=== PATIENT | female | born 1970 | race Caucasian/White ===

== ENCOUNTER 2016-11-06 11:52 | Outpatient (CLI) | payer OTHER, BC ==
--- NOTE | 2016-11-06 18:14 | XRAY Report ---
EXAM: RIGHT FOOT RADIOGRAPHY EXAM DATE: 11/06/2016 12:20 PM. CLINICAL HISTORY: HEAL SPUR. COMPARISON: 06/30/2013. TECHNIQUE: 3 views. FINDINGS: Bones: There is no evidence of acute fracture. A small plantar calcaneal spur is again seen. Joints: Normal. No subluxations. Soft Tissues: Normal. No soft tissue swelling. IMPRESSION: Small plantar calcaneal spur. [facility] Referring Provider Line: [phone] SITE ID: [id number]
== END 2016-11-06 11:53 | disposition home or self-care (01) ==
LOC: DI 11:52
PROVIDERS: ATTEND Specialist
DX: M77.31 Calcaneal spur, right foot (principal)

== ENCOUNTER 2016-11-23 15:39 | Outpatient (CLI) | payer OTHER, BC | END 2016-11-23 15:40 | disposition home or self-care (01) | LOC: SC 15:39 | PROVIDERS: ATTEND Internal Medicine Pulmonary Disease | DX: G47.10 Hypersomnia, unspecified (principal); R06.83 Snoring; G47.8 Other sleep disorders | CPT/HCPCS: 99203; 99212 ==

== ENCOUNTER 2017-01-23 19:25 | Outpatient (CLI) | payer OTHER, BC | END 2017-01-23 19:26 | disposition home or self-care (01) | LOC: SC 19:25 | PROVIDERS: ATTEND Internal Medicine Pulmonary Disease | DX: G47.33 Obstructive sleep apnea (adult) (pediatric) (principal) | CPT/HCPCS: 95810 ==

== ENCOUNTER 2017-03-24 09:20 | Outpatient (CLI) | payer OTHER, BC | END 2017-03-24 09:21 | disposition home or self-care (01) | LOC: SC 09:20 | PROVIDERS: ATTEND Nurse Practitioner Family | DX: G47.33 Obstructive sleep apnea (adult) (pediatric) (principal) | CPT/HCPCS: 99212; 99214 ==

== ENCOUNTER 2017-06-16 09:41 | Outpatient (CLI) | payer OTHER, BC | END 2017-06-16 09:42 | disposition home or self-care (01) | LOC: SC 09:41 | PROVIDERS: ATTEND Nurse Practitioner Family | DX: G47.33 Obstructive sleep apnea (adult) (pediatric) (principal); F41.9 Anxiety disorder, unspecified; F32.9 Major depressive disorder, single episode, unspecified; I47.1 Supraventricular tachycardia | CPT/HCPCS: 99212; 99214 ==

== ENCOUNTER 2017-06-27 08:24 | Outpatient (CLI) | payer OTHER, BC | END 2017-06-27 08:25 | disposition home or self-care (01) | LOC: SC 08:24 | PROVIDERS: ATTEND Nurse Practitioner Family | DX: G47.33 Obstructive sleep apnea (adult) (pediatric) (principal); F41.9 Anxiety disorder, unspecified; F32.9 Major depressive disorder, single episode, unspecified; I47.1 Supraventricular tachycardia | CPT/HCPCS: 99212; 99214 ==

== ENCOUNTER 2017-08-02 08:50 | Outpatient (CLI) | payer OTHER, BC | END 2017-08-02 08:51 | disposition home or self-care (01) | LOC: SC 08:50 | PROVIDERS: ATTEND Nurse Practitioner Family | DX: G47.33 Obstructive sleep apnea (adult) (pediatric) (principal) | CPT/HCPCS: 99212; 99214 ==

== ENCOUNTER 2017-09-05 14:49 | Outpatient (CLI) | payer OTHER, BC | END 2017-09-05 14:50 | disposition home or self-care (01) | LOC: SC 14:49 | PROVIDERS: ATTEND Nurse Practitioner Family | DX: G47.33 Obstructive sleep apnea (adult) (pediatric) (principal) | CPT/HCPCS: 99212; 99214 ==

== ENCOUNTER 2017-10-26 02:16 | Emergency (ER) | payer OTHER, BC ==
--- NOTE | 2017-10-26 02:42 | ED Physician Documentation ---
PD HPI ABD PAIN - Stated complaint Stated Complaint: RUQ PAIN - Chief complaint Chief Complaint: Abd Pain - History obtained from History obtained from: Patient - History of Present Illness Timing - onset: How many weeks ago (1.5) Timing - details: Gradual onset, Waxing and waning Pain level now: 8 Quality: Pain Location: RUQ Radiation: Right flank Improved by: Other (no ameliorating factors) Worsened by: Other (no exacerbating factors) Associated symptoms: Nausea, Vomiting, Diarrhea. 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 - Present Medications Home Medications: Ambulatory Orders Medication Instructions Recorded Confirmed Albuterol [Ventolin Hfa] 2 puffs INH PRN PRN 06/30/13 06/30/13 Lamotrigine 400 mg PO DAILY 06/30/13 06/30/13 Acyclovir 400 mg PO BID 10/26/17 Fluticasone Propionate [Flovent 100 mcg IH BID 10/26/17 Diskus] Montelukast [Singulair] 10 mg PO QPM 10/26/17 Ondansetron Odt [Zofran] 4 mg TL Q6H PRN #10 tablet 10/26/17 oxyCODONE [Roxicodone] 5 - 10 mg PO Q6H PRN #20 tablet 10/26/17 raNITIdine [Zantac] 150 mg PO BID 10/26/17 - Allergies Allergies/Adverse Reactions: Allergies Allergy/AdvReac Type Severity Reaction Status Date / Time morphine Allergy Itching Verified 10/26/17 02:27 tramadol Allergy chest pain Verified 10/26/17 02:27 - Social History Does the pt smoke?: No Smoking Status: Never smoker Does the pt drink ETOH?: Yes Does the pt have substance abuse?: No - Immunizations Immunizations are current?: Yes - POLST Patient has POLST: No PD ED PE NORMAL - Vitals Vital signs reviewed: Yes - General General: Alert and oriented X 3, Well developed/nourished, Other (appears to be uncomfortable due to pain) - HEENT HEENT: Moist mucous membranes - Cardiac Cardiac: RRR, No murmur - Respiratory Respiratory: No respiratory distress, Clear bilaterally - Abdomen Abdomen: Soft, Non distended, Other (mild epigastric tenderness without rebound or guardng) - Back Back: No CVA TTP - Derm Derm: Normal color, Warm and dry, No rash - Extremities Extremities: No edema Results - Vitals Vitals: Vital Signs - 24 hr 10/26/17 10/26/17 10/26/17 02:18 03:22 04:15 Temperature 36.3 C L Heart Rate 127 H 89 77 Respiratory 20 17 16 Rate Blood Pressure 138/78 H 108/68 114/66 O2 Saturation 100 94 93 10/26/17 05:33 Temperature Heart Rate 79 Respiratory 16 Rate Blood Pressure 124/72 O2 Saturation 94 Oxygen O2 Source Room air - Labs Labs: Laboratory Tests 10/26/17 10/26/17 10/26/17 03:00 03:08 03:08 WBC 10.8 RBC 4.38 Hgb 13.0 Hct 38.3 MCV 87.4 MCH 29.6 MCHC 33.9 RDW 12.5 Plt Count 343 MPV 7.3 L Neut # (Auto) 8.8 H Lymph # (Auto) 1.1 L [place] # (Auto) 0.8 Eos # (Auto) 0.1 Baso # (Auto) 0.0 Absolute Nucleated RBC 0.01 Nucleated RBC % 0.0 Sodium 136 Potassium 3.8 Chloride 102 Carbon Dioxide 24 Anion Gap 10.0 BUN 15 Creatinine 0.7 Estimated GFR (MDRD) 89 Glucose 129 H Calcium 9.3 Total Bilirubin < 0.2 L AST 18 ALT 14 Alkaline Phosphatase 74 Total Protein 7.6 Albumin 4.0 Globulin 3.6 Albumin/Globulin Ratio 1.1 Lipase 22 Urine Color YELLOW Urine Clarity CLEAR Urine pH 6.0 Ur Specific [place] 1.015 Urine Protein NEGATIVE Urine Glucose (UA) NEGATIVE Urine Ketones NEGATIVE Urine Occult Blood TRACE-INTA Urine Nitrite NEGATIVE Urine Bilirubin NEGATIVE Urine Urobilinogen 0.2 (NORMAL) Ur Leukocyte Esterase NEGATIVE Ur Microscopic Review NOT INDICATED Urine Culture Comments NOT INDICATED Urine HCG, Qual NEGATIVE - Rads (name of study) CT A/P Radiology: Prelim report reviewed, See rad report PD MEDICAL DECISION MAKING - ED course Complexity details: reviewed results, re-evaluated patient (patient reported significant relief with iv dilaudid and zofran. unremarkable test results, will discharge with undifferentiated abdominal pain instructions. f/u with PMD, return to ED if worse), considered differential, d/w patient - Sepsis Event Vital Signs: Vital Signs - 24 hr 10/26/17 10/26/17 10/26/17 02:18 03:22 04:15 Temperature 36.3 C L Heart Rate 127 H 89 77 Respiratory 20 17 16 Rate Blood Pressure 138/78 H 108/68 114/66 O2 Saturation 100 94 93 10/26/17 05:33 Temperature Heart Rate 79 Respiratory 16 Rate Blood Pressure 124/72 O2 Saturation 94 Oxygen O2 Source Room air Departure - Departure Disposition: 01 Home, Self Care Clinical Impression: Flank pain Condition: Good Instructions: ED Flank Pain Uncertain Cause Follow-Up: Kanika Roberts PA-C [Primary Care Provider] - Within 3 Days Prescriptions: Ondansetron Odt [Zofran] 4 mg TL Q6H PRN #10 tablet PRN Reason: Nausea / Vomiting oxyCODONE [Roxicodone] 5 - 10 mg PO Q6H PRN #20 tablet PRN Reason: Pain Discharge Date/Time: 10/26/17 05:52
[2017-10-26] MEDS ORDERED: SODIUM CHLORIDE 0.9% 1,000 ML IV STA (02:58)
[2017-10-26] MEDS ORDERED: ONDANSETRON 4 MG/2 ML VIAL IVP STA (02:58)
[2017-10-26] MEDS ORDERED: HYDROmorphone 1 MG/ML CARPUJECT IVP STA (02:58)
[2017-10-26 03:17] LABS: BILIRUBIN,URINE NEGATIVE (NEGATIVE); GLUCOSE, URINE (UA) NEGATIVE (NEGATIVE); KETONES,URINE (UA) NEGATIVE (NEGATIVE); LEUKOCYTE ESTERASE, URINE NEGATIVE (NEGATIVE); NITRITE,URINE NEGATIVE (NEGATIVE); OCCULT BLOOD,URINE TRACE-INTA (NEGATIVE); PROTEIN,URINE NEGATIVE (NEGATIVE); UROBILINOGEN,URINE 0.2 (NORMAL) E.U./dL (NORMAL)
[2017-10-26 03:18] LABS: BASOPHILS % (AUTO) 0.4 %; EOSINOPHILS # (AUTO) 0.1 10^3/uL (0.0-0.7); EOSINOPHILS % (AUTO) 0.5 %; LYMPHOCYTES # (AUTO) 1.1 10^3/uL (1.5-3.5); MEAN CORPUSCULAR HEMOGLOBIN 29.6 pg (27.0-31.0); MEAN CORPUSCULAR HGB CONC 33.9 g/dL (32.0-36.0); MEAN CORPUSCULAR VOLUME 87.4 fL (81.0-99.0); MEAN PLATELET VOLUME 7.3 fL (7.9-10.8); MONOCYTES # (AUTO) 0.8 10^3/uL (0.0-1.0); MONOCYTES % (AUTO) 7.3 %; NEUTROPHILS # (AUTO) 8.8 10^3/uL (1.5-6.6); NEUTROPHILS % (AUTO) 81.8 %; PLT - PLATELET COUNT 343 10^3/uL (130-450); RED BLOOD COUNT 4.38 10^6/uL (4.20-5.40); RED CELL DISTRIBUTION WIDTH 12.5 % (12.0-15.0); WHITE BLOOD COUNT 10.8 x10^3/uL (4.8-10.8)
[2017-10-26 03:19] LABS: CLARITY,URINE CLEAR (CLEAR)
[2017-10-26 03:20] LABS: HCG UR QUAL NEGATIVE
[2017-10-26 03:29] LABS: ALBUMIN/GLOBULIN RATIO 1.1 (1.0-2.2); ALKALINE PHOSPHATASE 74 IU/L (42-121); ALT ALANINE AMINOTRANSFERASE 14 IU/L (10-60); AST ASPARTATE AMINOTRANSFERASE 18 IU/L (10-42); BILIRUBIN,TOTAL < 0.2 mg/dL (0.2-1.0); BUN - BLOOD UREA NITROGEN 15 mg/dL (6-20); CALCIUM 9.3 mg/dL (8.5-10.3); CARBON DIOXIDE - CO2 24 mmol/L (21-32); CHLORIDE 102 mmol/L (101-111); CREATININE 0.7 mg/dL (0.4-1.0); GFR - MDRD 89 (>89); GLUCOSE 129 mg/dL (70-100); LIPASE 22 U/L (22-51); SODIUM 136 mmol/L (135-145); TOTAL PROTEIN 7.6 g/dL (6.7-8.2)
--- NOTE | 2017-10-26 04:45 | CT Report ---
Reason: right flank pain Procedure Date: 10/26/2017 Accession Number: [id number] / [id number] Procedure: CT - Abdomen/Pelvis W/O CPT Code: FULL RESULT: EXAM: CT ABDOMEN AND PELVIS (CT KUB) EXAM DATE: 10/26/2017 04:28 AM. CLINICAL HISTORY: Right flank pain. COMPARISONS: ABDOMEN LMTD 02/22/2007 7:10 PM. TECHNIQUE: Routine axial helical CT imaging was performed through the abdomen and pelvis without IV contrast. Reconstructions: Coronal and sagittal. In accordance with CT protocol optimization, one or more of the following dose reduction techniques were utilized for this exam: automated exposure control, adjustment of mA and/or KV based on patient size, or use of iterative reconstructive technique. FINDINGS: Lung Bases: Unremarkable. Right Kidney/Ureter: No stones, hydronephrosis, or hydroureter. No perinephric fat stranding. Left Kidney/Ureter: No stones, hydronephrosis, or hydroureter. No perinephric fat stranding. Other Solid Organs: Noncontrast images of the solid organs are grossly unremarkable. Gallbladder/Bile Ducts: Unremarkable. Peritoneal Cavity: No free fluid, free air or juliet adenopathy. Bowel is grossly unremarkable with note of a normal appendix. Pelvic Organs: No bladder stones or wall thickening. Noncontrast images of the visualized pelvic organs are unremarkable with note of an IUD. Vasculature: Unremarkable. Other: None. IMPRESSION: No urinary tract stones or obstruction. [facility]
[2017-10-26] MEDS ORDERED: oxyCODONE/ACET 5/325 Prepack 4 PO STA (05:16)
[2017-10-26] MEDS ORDERED: ONDANSETRON ODT 4 MG Prepack 2 TL STA (05:16)
[2017-10-26 05:34] VITALS: BP 124/72
== END 2017-10-26 05:52 | disposition home or self-care (01) ==
LOC: ED 02:16
DX: R10.31 Right lower quadrant pain (principal)
CPT/HCPCS: 36415; 74176; 80053; 81003; 81025; 83690; 85025; 96361; 96374; 96375; 99283; 99284; J1170; 81001; 87086

== ENCOUNTER 2017-10-28 06:39 | Emergency (ER) | payer OTHER, BC ==
[2017-10-28 07:27] LABS: BASOPHILS # (AUTO) 0.1 10^3/uL (0.0-0.1); BASOPHILS % (AUTO) 0.6 %; EOSINOPHILS % (AUTO) 0.5 %; HGB - HEMOGLOBIN 12.6 g/dL (12.0-16.0); LYMPHOCYTES # (AUTO) 1.1 10^3/uL (1.5-3.5); LYMPHOCYTES % (AUTO) 10.9 %; MEAN CORPUSCULAR HEMOGLOBIN 29.8 pg (27.0-31.0); MEAN CORPUSCULAR HGB CONC 34.2 g/dL (32.0-36.0); MONOCYTES # (AUTO) 0.6 10^3/uL (0.0-1.0); MONOCYTES % (AUTO) 6.3 %; NEUTROPHILS # (AUTO) 8.2 10^3/uL (1.5-6.6); NEUTROPHILS % (AUTO) 81.7 %; PLT - PLATELET COUNT 308 10^3/uL (130-450); RED BLOOD COUNT 4.22 10^6/uL (4.20-5.40); RED CELL DISTRIBUTION WIDTH 12.4 % (12.0-15.0)
[2017-10-28] MEDS ORDERED: ONDANSETRON 4 MG/2 ML VIAL IVP STA (07:36)
[2017-10-28] MEDS ORDERED: ACETAMINOPHEN 1,000 MG/100 ML 100 ML IV STA (07:36)
[2017-10-28] MEDS ORDERED: KETOROLAC 60 MG/2 ML VIAL IVP STA (07:36)
[2017-10-28] MEDS ORDERED: SODIUM CHLORIDE 0.9% 1,000 ML IV ONE (07:36)
[2017-10-28 07:40] LABS: ALBUMIN/GLOBULIN RATIO 1.1 (1.0-2.2); BILIRUBIN,TOTAL 0.5 mg/dL (0.2-1.0); CALCIUM 8.9 mg/dL (8.5-10.3); CREATININE 0.8 mg/dL (0.4-1.0); TOTAL PROTEIN 7.6 g/dL (6.7-8.2)
--- NOTE | 2017-10-28 07:48 | ED Physician Documentation ---
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 - Present Medications Home Medications: Ambulatory Orders Medication Instructions Recorded Confirmed Albuterol [Ventolin Hfa] 2 puffs INH PRN PRN 06/30/13 06/30/13 Lamotrigine 400 mg PO DAILY 06/30/13 06/30/13 Acyclovir 400 mg PO BID 10/26/17 Fluticasone Propionate [Flovent 100 mcg IH BID 10/26/17 Diskus] Montelukast [Singulair] 10 mg PO QPM 10/26/17 Ondansetron Odt [Zofran] 4 mg TL Q6H PRN #10 tablet 10/26/17 oxyCODONE [Roxicodone] 5 - 10 mg PO Q6H PRN #20 tablet 10/26/17 raNITIdine [Zantac] 150 mg PO BID 10/26/17 Dicyclomine [Bentyl] 10 mg PO Q8H PRN #20 capsule 10/28/17 Sucralfate 1 gm PO ACHS #120 tablet 10/28/17 - Allergies Allergies/Adverse Reactions: Allergies Allergy/AdvReac Type Severity Reaction Status Date / Time morphine Allergy Itching Verified 10/26/17 02:27 tramadol Allergy chest pain Verified 10/26/17 02:27 - Social History Does the pt smoke?: No Smoking Status: Never smoker Does the pt drink ETOH?: Yes Does the pt have substance abuse?: No - Immunizations Immunizations are current?: Yes - POLST Patient has POLST: No PD ED PE NORMAL - Vitals Vital signs reviewed: Yes - General General: Other (restless almost writihing) - Neck Neck: Supple, no meningeal sign - Cardiac Cardiac: RRR - Respiratory Respiratory: No respiratory distress, Clear bilaterally - Abdomen Abdomen: Other (+ BS soft, palpation does not alter the pain no pulsatile mass neg murphys) - Back Back: No CVA TTP - Derm Derm: Normal color - Neuro Neuro: Alert and oriented X 3 Results - Vitals Vitals: Vital Signs - 24 hr 10/28/17 10/28/17 10/28/17 06:48 10:22 13:14 Temperature 36.1 C L 37.1 C 98.3 C H Heart Rate 81 64 65 Respiratory 20 18 16 Rate Blood Pressure 116/71 110/69 117/74 O2 Saturation 100 98 100 Oxygen O2 Source Room air - Labs Labs: Laboratory Tests 10/28/17 10/28/17 10/28/17 07:19 07:19 08:52 WBC 10.0 RBC 4.22 Hgb 12.6 Hct 36.7 L MCV 87.0 MCH 29.8 MCHC 34.2 RDW 12.4 Plt Count 308 MPV 7.0 L Neut # (Auto) 8.2 H Lymph # (Auto) 1.1 L [place] # (Auto) 0.6 Eos # (Auto) 0.0 Baso # (Auto) 0.1 Absolute Nucleated RBC 0.01 Nucleated RBC % 0.1 Sodium 137 Potassium 3.7 Chloride 100 L Carbon Dioxide 25 Anion Gap 12.0 BUN 9 Creatinine 0.8 Estimated GFR (MDRD) 77 L Glucose 111 H Calcium 8.9 Total Bilirubin 0.5 AST 19 ALT 14 Alkaline Phosphatase 81 Total Protein 7.6 Albumin 4.0 Globulin 3.6 Albumin/Globulin Ratio 1.1 Lipase 25 Urine Color YELLOW Urine Clarity CLEAR Urine pH 8.5 H Ur Specific [place] 1.010 Urine Protein NEGATIVE Urine Glucose (UA) NEGATIVE Urine Ketones NEGATIVE Urine Occult Blood NEGATIVE Urine Nitrite NEGATIVE Urine Bilirubin NEGATIVE Urine Urobilinogen 0.2 (NORMAL) Ur Leukocyte Esterase NEGATIVE Ur Microscopic Review NOT INDICATED Urine Culture Comments NOT INDICATED Urine HCG, Qual 10/28/17 08:52 WBC RBC Hgb Hct MCV MCH MCHC RDW Plt Count MPV Neut # (Auto) Lymph # (Auto) [place] # (Auto) Eos # (Auto) Baso # (Auto) Absolute Nucleated RBC Nucleated RBC % Sodium Potassium Chloride Carbon Dioxide Anion Gap BUN Creatinine Estimated GFR (MDRD) Glucose Calcium Total Bilirubin AST ALT Alkaline Phosphatase Total Protein Albumin Globulin Albumin/Globulin Ratio Lipase Urine Color Urine Clarity Urine pH Ur Specific [place] 1.010 Urine Protein Urine Glucose (UA) Urine Ketones Urine Occult Blood Urine Nitrite Urine Bilirubin Urine Urobilinogen Ur Leukocyte Esterase Ur Microscopic Review Urine Culture Comments Urine HCG, Qual NEGATIVE - Rads (name of study) ruq sono Radiology: See rad report (no gallstones, no acute key, no hydro) CTA abd pelvis Radiology: See rad report (rlq adenopathy, no other acuet process) PD MEDICAL DECISION MAKING - ED course ED course: sono neg CTA shows mesenteric adenitis by pt hx food poisoning such as salmonella unliekly she has recently cared for rotavirus pt so likely viral will dc she also suffers frogastritis, will add carafate and refer to surg for EGD - Sepsis Event Vital Signs: Vital Signs - 24 hr 10/28/17 10/28/17 10/28/17 06:48 10:22 13:14 Temperature 36.1 C L 37.1 C 98.3 C H Heart Rate 81 64 65 Respiratory 20 18 16 Rate Blood Pressure 116/71 110/69 117/74 O2 Saturation 100 98 100 Oxygen O2 Source Room air Departure - Departure Disposition: 01 Home, Self Care Clinical Impression: Mesenteric adenitis Gastritis Qualifiers: Gastritis type: unspecified gastritis Chronicity: acute Gastritis bleeding: without bleeding Qualified Code(s): K29.00 - Acute gastritis without bleeding Condition: Good Instructions: ED Gastritis, ED Adenitis Mesenteric Follow-Up: Wesly Garibay MD [Provider Admit Priv/Credential] - (call to schedule an appointment to discuss endoscopy) Prescriptions: Dicyclomine [Bentyl] 10 mg PO Q8H PRN #20 capsule PRN Reason: stomach cramps Sucralfate 1 gm PO ACHS #120 tablet Comments: Continue your zantac. Try to cut down on your NSAID use. The inflamed lymph nodes will resolve on their own Follow up with the surgical clinic to discuss endoscopy
[2017-10-28 09:12] LABS: BILIRUBIN,URINE NEGATIVE (NEGATIVE); CLARITY,URINE CLEAR (CLEAR); GLUCOSE, URINE (UA) NEGATIVE (NEGATIVE); KETONES,URINE (UA) NEGATIVE (NEGATIVE); LEUKOCYTE ESTERASE, URINE NEGATIVE (NEGATIVE); NITRITE,URINE NEGATIVE (NEGATIVE); OCCULT BLOOD,URINE NEGATIVE (NEGATIVE); PH,URINE 8.5 PH (5.0-7.5); PROTEIN,URINE NEGATIVE (NEGATIVE); UROBILINOGEN,URINE 0.2 (NORMAL) E.U./dL (NORMAL)
[2017-10-28 09:13] LABS: HCG UR QUAL NEGATIVE
--- NOTE | 2017-10-28 09:27 | Ultrasound Report ---
Reason: ruq r flank pain Procedure Date: 10/28/2017 Accession Number: [id number] / [id number] Procedure: US - Abdomen Limited CPT Code: FULL RESULT: EXAM: ABDOMEN ULTRASOUND LIMITED, RUQ EXAM DATE: 10/28/2017 08:45 AM. CLINICAL HISTORY: Ruq r flank pain. COMPARISON: ABDOMEN/PELVIS W/O 10/26/2017 4:15 AM. TECHNIQUE: Real-time scanning was performed with static images obtained. FINDINGS: Liver: The parenchyma is mildly heterogeneous diffusely. No definite focal masses are identified, but evaluation is limited secondary to the echotexture. 15.4 cm. Main portal vein flow: Hepatopetal. Gallbladder: Normal. No stones, wall thickening, or sonographic Briscoe's sign. Biliary System: CBD measures 6 mm. No intrahepatic or extrahepatic ductal dilatation. Other: No right hydronephrosis. IMPRESSION: No cholelithiasis or evidence of cholecystitis. [facility]
[2017-10-28] MEDS ORDERED: IOPAMIDOL-300 100 ML VIAL ONE (10:16)
[2017-10-28] MEDS ORDERED: IOPAMIDOL-300 100 ML VIAL IVP ONE (12:19)
--- NOTE | 2017-10-28 13:02 | CT Report ---
Reason: severe colicky abd pain Procedure Date: 10/28/2017 Accession Number: [id number] / [id number] Procedure: CT - Abdomen/Pelvis Angio CPT Code: FULL RESULT: EXAM: CT ANGIOGRAM ABDOMEN AND PELVIS WITH CONTRAST EXAM DATE: 10/28/2017 12:18 PM. CLINICAL HISTORY: Severe colicky abd pain. COMPARISONS: 10/26/2017. TECHNIQUE: Routine helical CT angiogram imaging was performed through the abdomen and pelvis in the arterial phase. IV contrast: 100 cc Isovue-300. Enteric contrast: No. Reconstructions: Coronal, sagittal, and 3D MIP reconstructions. In accordance with CT protocol optimization, one or more of the following dose reduction techniques were utilized for this exam: automated exposure control, adjustment of mA and/or KV based on patient size, or use of iterative reconstructive technique. FINDINGS: Vasculature: Normal. No aneurysm, dissection, or significant atherosclerotic disease of the abdominal aorta and iliac arteries. The visualized mesenteric and solid organ vascular structures are also within normal limits. Lung Bases: Normal. Abdominal Solid Organs: Normal. The liver, spleen, pancreas, adrenal glands, gallbladder and kidneys are normal in size and demonstrate no masses or abnormal enhancement. Peritoneal Cavity: 1 cm right lower quadrant lymph nodes. Subcentimeter mesenteric lymph nodes. Diverticulosis No free fluid, free air, or acute inflammatory process. Pelvic Organs: Bladder unremarkable. IUD in uterus. 1 cm left exophytic left ovarian cyst or adnexal cyst. Punctate calcifications right ovary Bones: No significant abnormality. Other: None. IMPRESSION: 1. No aneurysm or dissection. 2. Small mesenteric, right lower quadrant lymph nodes unknown significance. 3. A 1 cm left ovarian or adnexal cyst 4. Diverticulosis [facility]
[2017-10-28 13:14] VITALS: BP 117/74
== END 2017-10-28 14:28 | disposition home or self-care (01) ==
LOC: ED 06:39
DX: I88.0 Nonspecific mesenteric lymphadenitis (principal); K29.00 Acute gastritis without bleeding; Z97.5 Presence of (intrauterine) contraceptive device
CPT/HCPCS: 36415; 74174; 76705; 80053; 81003; 81025; 83690; 85025; 96365; 96375; 99283; 99284; J0131; Q9967; 81001; 87086

== ENCOUNTER 2017-12-13 09:39 | Outpatient (CLI) | payer OTHER, BC ==
--- NOTE | 2017-12-13 13:25 | XRAY Report ---
Reason: ACUTE ON CHRONIC THORACIC BACK PAIN Procedure Date: 12/13/2017 Accession Number: [id number] / [id number] Procedure: XR - Thoracic Spine 2 View CPT Code: FULL RESULT: EXAM: THORACIC SPINE RADIOGRAPHY EXAM DATE: 12/13/2017 10:15 AM. CLINICAL HISTORY: Acute on chronic thoracic back pain. COMPARISON: None. TECHNIQUE: 2 views. FINDINGS: Alignment: Normal. No spondylolisthesis or scoliosis. Bones: No fractures or bone lesions. Disks: There is some mild loss of disk space height anteriorly upper thoracic spine. Soft Tissues: Normal. The visualized lungs and cardiomediastinal silhouette are normal. IMPRESSION: No evidence of thoracic spine listhesis or compression fracture. [facility]
--- NOTE | 2017-12-13 14:11 | XRAY Report ---
Reason: ACUTE ON CHRONIC THORACIC BACK PAIN Procedure Date: 12/13/2017 Accession Number: [id number] / [id number] Procedure: XR - Lumbar Spine 2 View CPT Code: FULL RESULT: EXAM: LUMBOSACRAL SPINE RADIOGRAPHY EXAM DATE: 12/13/2017 10:15 AM. CLINICAL HISTORY: Acute on chronic thoracic back pain. COMPARISONS: None. TECHNIQUE: 3 views. FINDINGS: Alignment: There is some mild levoconvex lumbar scoliosis, no listhesis. Bones: Five [id number] lumbar vertebral bodies are present. No fractures or bone lesions. Disks: Mild loss of disk space height at L4-L5. Facets: Mild facet arthropathy at L5. Sacroiliac Joints: Unremarkable. Soft Tissues: Normal. The visualized bowel gas pattern is normal. IMPRESSION: Mild degenerative changes including mild lumbar scoliosis. [facility]
== END 2017-12-13 09:40 | disposition home or self-care (01) ==
LOC: DI 09:39
PROVIDERS: ATTEND Family Medicine
DX: M47.9 Spondylosis, unspecified (principal); M51.36 Other intervertebral disc degeneration, lumbar region
CPT/HCPCS: 72070; 72100

== ENCOUNTER 2017-12-20 10:12 | Outpatient (CLI) | payer OTHER, BC | END 2017-12-20 10:13 | disposition home or self-care (01) | LOC: SC 10:12 | PROVIDERS: ATTEND Nurse Practitioner Family | DX: G47.33 Obstructive sleep apnea (adult) (pediatric) (principal) | CPT/HCPCS: 99212; 99214 ==

== ENCOUNTER 2020-09-08 07:15 | Outpatient (CLI) | payer BC | END 2020-09-08 07:16 | disposition EMS.NT | LOC: EMS 07:15 | DX: R06.02 Shortness of breath (principal) ==